=== PATIENT | female | born 1995 | race African-American/Black ===

== ENCOUNTER 2016-03-27 16:33 | Emergency (ER) | payer OTHER ==
[~2016-03-27] VITALS: Ht 167.6 cm; Wt 77.1 kg
[~2016-03-27 16:33] MED LIST: AMOX500C PO; CITA40TA12 PO; PNV1TABL69 PO; TRAZ50TA15 PO
--- NOTE | 2016-03-27 17:00 | PHYS DOC ---
Past Medical History Past Medical History: No Pertinent History, Depression Past Surgical History: No Surgical History Additional Information: nonsmoker Alcohol Use: None Drug Use: None Adult General Chief Complaint Chief Complaint: ABDOMINAL PAIN HPI HPI Patient is a 20 year old female who presents with pelvic pain for 2 weeks. She has had white vaginal discharge and irritation as well as urinary frequency and urgency. She has nausea without vomiting. She denies dysuria, fever, or diarrhea. She reports that her last menstrual cycle was irregular. She began to have spotting on 03/07/16 for a few days and then had her usual cycle on . She took a home test a week ago and it was negative. She had similar symptoms the last time she was . She had pre-term labor at 5 months and the baby did not live. Her PCP is Dr. Pascual Rodriguez. Review of Systems Review of Systems Constitutional: Denies fever or chills. [] GI: Denies abdominal pain, vomiting, bloody stools or diarrhea. Reports nausea and pelvic pain. : Denies dysuria, hematuria. Reports urinary frequency and urgency, vaginal discharge, no pelvic pain. Musculoskeletal: Denies joint pain. Reports low-back pain. Integument: Denies rash or skin lesions. [] Neurologic: Denies headache, focal weakness or sensory changes. [] All systems reviewed and negative unless otherwise stated in the HPI. Allergies Allergies Allergies Coded Allergies Type Severity Reaction Last Updated Verified No Known Drug Allergies 07/31/13 No Physical Exam Physical Exam Constitutional: Well developed, well nourished, no acute distress, non-toxic appearance. [] HENT: Normocephalic, atraumatic, oropharynx moist. [] Eyes: PERRLA, EOMI, conjunctiva normal, no discharge. [] Neck: Normal range of motion, no tenderness, supple, no stridor. [] Cardiovascular: Heart rate regular rhythm, no murmur. [] Lungs & Thorax: Bilateral breath sounds clear to auscultation without wheezes, rales, or rhonchi. [] Abdomen: Bowel sounds normal, soft, diffuse pelvic tenderness, no masses, no pulsatile masses. [] Female : Skin: Warm, dry, no erythema, no rash. [] Back: No midline tenderness, no CVA tenderness. [] Extremities: No tenderness, ROM intact, no edema. Distal pulses equal bilaterally. [] Neurologic: Alert and oriented X 3, normal motor function, normal sensory function, no focal deficits noted. [] Psychologic: Affect normal, judgement normal, mood normal. [] Current Patient Data Vital Signs Vital Signs Date Time Temp Pulse Resp B/P Pulse Ox O2 Delivery O2 Flow Rate FiO2 03/27/16 17:02 98.5 79 18 138/79 100 Room Air 98.5 Lab Values Laboratory Tests Test 03/27/16 16:40 Urine Collection Type Unknown Urine Color Yellow Urine Clarity Clear Urine pH 8.0 Urine Specific [place] 1.015 Urine Protein Negativemg/dL (NEG-TRACE) Urine Glucose (UA) Negativemg/dL (NEG) Urine Ketones (Stick) Negativemg/dL (NEG) Urine Blood Negative (NEG) Urine Nitrite Negative (NEG) Urine Bilirubin Negative (NEG) Urine Urobilinogen Dipstick 1.0mg/dL (0.2 mg/dL) Urine Leukocyte Esterase Trace (NEG) Urine RBC 0/HPF (0-2) Urine WBC 1-4/HPF (0-4) Urine Squamous Epithelial Cells Many/LPF Urine Bacteria Moderate/HPF (0-FEW) Urine Test Negative (NEG) Microbiology 03/27/16 Wet Prep - Final, Complete WET PREP Final YEAST NONE SEEN TRICHOMONAS NONE SEEN CLUE CELLS NONE SEEN ALTERED PASCALE ALTERED PASCALE PRESENT SUGGESTIVE OF BACTERIAL VAGINOSIS WBCS FEW EKG EKG [] Radiology/Procedures Radiology/Procedures [] Course & Med Decision Making Course & Med Decision Making Pertinent Labs and Imaging studies reviewed. (See chart for details) The patient is an 19-year old female who presents with pelvic pain for 2 weeks. On exam, she has diffuse pelvic tenderness with vaginal discharge. Urine shows UTI and wet prep shows BV. She requests STI treatment prophylactically and is given Rocephin and Azithromycin. She is discharged home with prescriptions for Flagyl and Cipro. She is instructed to abstain from intercourse for one week. Return precautions were discussed. She verbalizes understanding and agrees with plan. Dragon Disclaimer Dragon Disclaimer This electronic medical record was generated, in whole or in part, using a voice recognition dictation system. Departure Departure Impression: Primary Impression: UTI (urinary tract infection) Additional Impressions: BV (bacterial vaginosis) Pelvic pain Disposition: 01 HOME, SELF-CARE Condition: STABLE Referrals: PASCUAL RODRIGUEZ MD (PCP) Patient Instructions: Bacterial Vaginosis, [id number], Pelvic Pain, Female, [id number], Urinary Tract Infection, [id number] Additional Instructions: You were seen today for pelvic pain. Your urine shows an infection. You also have a vaginal bacterial infection, called bacterial vaginosis. This is not sexually transmitted. Please complete all of the prescribed antibiotics, even if you are feeling better. You were treated for gonorrhea and chlamydia today. We will not have the results of this test for 2-3 days. You will receive a phone call if your test is positive. Please do not have sex for 1 week to be sure that the treatment is complete. Please follow up with your primary care doctor if your symptoms continue. Return to emergency department if you have any new or concerning symptoms. Scripts Naproxen 500 Mg Tablet.dr500 Mg PO BID #20 Prov:NADINE MENDEZ 03/27/16 Ciprofloxacin Hcl (Cipro)500 Mg Tablet1 Tab PO BID 3 Days Prov:NADINE MENDEZ 03/27/16 Metronidazole (Flagyl)500 Mg Tablet1 Tab PO BID #14 TAB Prov:NADINE MENDEZ 03/27/16 Problem Qualifiers Primary Impression: UTI (urinary tract infection) Urinary tract infection type: acute cystitis Hematuria presence: with hematuria Qualified Code: N30.01 - Acute cystitis with hematuria NADINE MENDEZ Mar 27, 2016 17:00
[2016-03-27 17:01] LABS: NEG OBC UR NEG; POS OBC UR POS
[2016-03-27 17:02] VITALS: BP 138/79
[2016-03-27 17:03] LABS: BILIRUBIN,URINE NEGATIVE (NEG); GLUCOSE,URINE NEGATIVE (NEG); NITRITE,URINE NEGATIVE (NEG); PROTEIN,URINE NEGATIVE (NEG-TRACE)
[2016-03-27 17:11] LABS: BACTERIA,URINE MODERATE /HPF (0-FEW); RBC,URINE 0 /HPF (0-2)
[2016-03-27 17:12] LABS: SQUAMOUS EPITHELIAL CELL,UR MANY /LPF
[2016-03-27] MEDS ORDERED: CIPR500T94 PO (18:07)
[2016-03-27] MEDS ORDERED: NAPR500T8 PO (18:07)
[2016-03-27] MEDS ORDERED: METR500T PO (18:07)
[2016-03-27] MEDS ORDERED: CEFTRIAXONE IM 250 MG VIAL. IM ONE (18:15)
[2016-03-27] MEDS ORDERED: AZITHROMYCIN 250 MG TABLET PO ONE (18:15)
== END 2016-03-27 18:24 | disposition home or self-care (01) ==
LOC: ER 16:33
DX: N39.0 Urinary tract infection, site not specified (principal)
CPT/HCPCS: 81001; 81025; 87086; 87491; 87591; 96372; 99284; J0696; Q0111; Q0144

== ENCOUNTER 2016-06-08 14:07 | Emergency (ER) | payer OTHER ==
[~2016-06-08] VITALS: Ht 167.6 cm; Wt 77.1 kg
[~2016-06-08 14:07] MED LIST changes: +CIPR500T94 PO; +METR500T PO; +NAPR500T8 PO
[2016-06-08 14:43] VITALS: BP 128/73
[2016-06-08 15:27] LABS: BILIRUBIN,URINE NEGATIVE (NEG); GLUCOSE,URINE NEGATIVE (NEG); NITRITE,URINE NEGATIVE (NEG); PROTEIN,URINE NEGATIVE (NEG-TRACE)
[2016-06-08 15:33] LABS: BACTERIA,URINE MANY /HPF (0-FEW); RBC,URINE 0 /HPF (0-2); SQUAMOUS EPITHELIAL CELL,UR MANY /LPF
--- NOTE | 2016-06-08 15:43 | PHYS DOC ---
Past Medical History Past Medical History: No Pertinent History Past Surgical History: No Surgical History Additional Information: nonsmoker Alcohol Use: None Drug Use: None Adult General Chief Complaint Chief Complaint: ABDOMINAL PAIN HPI HPI Patient is a 20 year old female who presents with pelvic cramping for 2 weeks. She reports urinary frequency and urgency. She has also had occasional nausea with vomiting. Her LMP was 05/06/06. She thinks she may be . She denies vaginal bleeding or discharge. She has not had dysuria, hematuria, fever, or diarrhea. She has had 1 previous twin . She delivered prematurely at 20 weeks and neither baby survived after . Her PCP is Dr. Pascual Rodriguez. Her OB doctor is Dr. Walt Portillo. Review of Systems Review of Systems Constitutional: Denies fever or chills. [] Eyes: Denies change in visual acuity, redness, or eye pain. [] HENT: Denies ear pain, nasal congestion or sore throat. [] Respiratory: Denies cough or shortness of breath. [] Cardiovascular: Denies chest pain, palpitations or edema. [] GI: Denies bloody stools or diarrhea. Reports nausea and vomiting. : Denies dysuria, hematuria, vaginal bleeding or discharge. Reports pelvic cramping, urinary frequency and urgency. Musculoskeletal: Denies back pain or joint pain. [] Integument: Denies rash or skin lesions. [] Neurologic: Denies headache, focal weakness or sensory changes. [] Endocrine: Denies polyuria or polydipsia. [] Psych: Denies anxiety or depression. [] All systems reviewed and negative unless otherwise stated in the HPI. Allergies Allergies Allergies Coded Allergies Type Severity Reaction Last Updated Verified No Known Drug Allergies 07/31/13 No Physical Exam Physical Exam Constitutional: Well developed, well nourished, no acute distress, non-toxic appearance. [] HENT: Normocephalic, atraumatic, oropharynx moist. [] Eyes: PERRLA, EOMI, conjunctiva normal, no discharge. [] Neck: Normal range of motion, no tenderness, supple, no stridor. [] Cardiovascular: Heart rate regular rhythm, no murmur. [] Lungs & Thorax: Bilateral breath sounds clear to auscultation without wheezes, rales, or rhonchi. [] Abdomen: Bowel sounds normal, soft, suprapubic tenderness, no masses, no pulsatile masses. [] Female : May, RN present for exam. Normal external genitalia. There is mild discharge in the vagina without bleeding. There is no cervicitis or CMT. There is mild left adnexal tenderness without mass. Skin: Warm, dry, no erythema, no rash. [] Back: No midline tenderness, no CVA tenderness. [] Extremities: No tenderness, ROM intact, no edema. Distal pulses equal bilaterally. [] Neurologic: Alert and oriented X 3, normal motor function, normal sensory function, no focal deficits noted. [] Psychologic: Affect normal, judgement normal, mood normal. [] Current Patient Data Vital Signs Vital Signs Date Time Temp Pulse Resp B/P Pulse Ox O2 Delivery O2 Flow Rate FiO2 06/08/16 14:43 98.8 98 16 128/73 100 Room Air 98.8 Lab Values Laboratory Tests Test 06/08/16 14:06 06/08/16 15:00 POC Urine HCG, Qualitative Hcg positive (Negative) Urine Collection Type Void Urine Color Yellow Urine Clarity Clear Urine pH 8.0 Urine Specific [place] 1.015 Urine Protein Negativemg/dL (NEG-TRACE) Urine Glucose (UA) Negativemg/dL (NEG) Urine Ketones (Stick) Negativemg/dL (NEG) Urine Blood Negative (NEG) Urine Nitrite Negative (NEG) Urine Bilirubin Negative (NEG) Urine Urobilinogen Dipstick 1.0mg/dL (0.2 mg/dL) Urine Leukocyte Esterase Small (NEG) Urine RBC 0/HPF (0-2) Urine WBC 1-4/HPF (0-4) Urine Squamous Epithelial Cells Many/LPF Urine Bacteria Many/HPF (0-FEW) Urine Mucus Slight/LPF Microbiology 06/08/16 Wet Prep - Final, Complete WET PREP Final YEAST NONE SEEN TRICHOMONAS NONE SEEN CLUE CELLS CLUE CELLS PRESENT EKG EKG [] Radiology/Procedures Radiology/Procedures REASON: pelvic cramping PROCEDURE: OB <14 WKS W/TV Pelvic ultrasound, 06/08/2016: History: Pelvic pain, positive test Transabdominal and transvaginal scans were obtained. The transabdominal scans are of limited utility due to lack of bladder distention. The transvaginal scans demonstrate thickening of the central uterine echo complex which measures approximately 16 mm in AP dimension. A tiny 3 mm cystic structure is seen within this process on the right. This could be a very tiny gestational sac, however, that cannot be stated with certainty. The right ovary is within normal limits in size. It contains a 1.7 cm slightly hyperechoic nodule. There is increased vascularity within and along the rim of this nodule. This may be a collapsing hemorrhagic cyst. This does not have the typical appearance of an ectopic gestation. The left ovary is within normal limits in size. It contains a 1.2 cm simple cyst. There is a small to moderate amount of free fluid in the pelvis. IMPRESSION: 1. Thickening of the central uterine echo complex with a questionable tiny intrauterine gestational sac as described above. 2. Small hyperechoic, mildly vascular nodule in the right ovary, not typical of an ectopic . 3. Small to moderate amount of free fluid in the pelvis. 4. Correlation with serial hCG titers and sonographic follow-up is suggested. Course & Med Decision Making Course & Med Decision Making Pertinent Labs and Imaging studies reviewed. (See chart for details) [] Dragon Disclaimer Dragon Disclaimer This electronic medical record was generated, in whole or in part, using a voice recognition dictation system. Departure Departure Impression: Primary Impression: Additional Impressions: BV (bacterial vaginosis) UTI (urinary tract infection) during Disposition: 01 HOME, SELF-CARE Condition: STABLE Referrals: PASCUAL RODRIGUEZ MD (PCP) Patient Instructions: , - Urinary Tract Infection Additional Instructions: Your test was positive today. It is very early to see anything definitive on ultrasound. Your urine was positive for infection. You also have a vaginal infection called bacterial vaginosis. This is not an STD. Please complete all of the prescribed antibiotics, even if you are feeling better. Please take vitamins daily. Please follow up with your OB doctor for routine care. Return to the emergency department if you have severe abdominal pain, vaginal bleeding, or other new or concerning symptoms. Scripts Vits W-Ca,Fe,Fa(<1MG) ( Vitamins)1 Each Tablet1 Each PO DAILY # 30 Prov:NADINE MENDEZ 06/08/16 Nitrofurantoin Monohyd/M-Cryst (Macrobid 100 Mg Capsule)100 Mg Capsule1 Cap PO BID #14 CAP Prov:NADINE MENDEZ 06/08/16 Metronidazole (Flagyl)500 Mg Tablet1 Tab PO BID #14 TAB Prov:NADINE MENDEZ 06/08/16 Problem Qualifiers Primary Impression: Weeks of gestation: less than 8 weeks Qualified Code: Z3A.01 - Less than 8 weeks gestation of Additional Impressions: UTI (urinary tract infection) during Trimester: first trimester Qualified Code: O23.41 - Unspecified infection of urinary tract in , first trimester NADINE MENDEZ Jun 08, 2016 15:43
--- NOTE | 2016-06-08 16:24 | RAD ---
Pelvic ultrasound, 06/08/2016: History: Pelvic pain, positive test Transabdominal and transvaginal scans were obtained. The transabdominal scans are of limited utility due to lack of bladder distention. The transvaginal scans demonstrate thickening of the central uterine echo complex which measures approximately 16 mm in AP dimension. A tiny 3 mm cystic structure is seen within this process on the right. This could be a very tiny gestational sac, however, that cannot be stated with certainty. The right ovary is within normal limits in size. It contains a 1.7 cm slightly hyperechoic nodule. There is increased vascularity within and along the rim of this nodule. This may be a collapsing hemorrhagic cyst. This does not have the typical appearance of an ectopic gestation. The left ovary is within normal limits in size. It contains a 1.2 cm simple cyst. There is a small to moderate amount of free fluid in the pelvis. IMPRESSION: 1. Thickening of the central uterine echo complex with a questionable tiny intrauterine gestational sac as described above. 2. Small hyperechoic, mildly vascular nodule in the right ovary, not typical of an ectopic . 3. Small to moderate amount of free fluid in the pelvis. 4. Correlation with serial hCG titers and sonographic follow-up is suggested.
[2016-06-08] MEDS ORDERED: PREN1TAB58 PO (16:32)
[2016-06-08] MEDS ORDERED: NITR100C62 PO (16:32)
[2016-06-08] MEDS ORDERED: METR500T PO (16:32)
--- NOTE | 2016-06-12 13:33 | VNOTE ---
CALL BACK NOTE CALL BACK Microbiology 06/08/16 Wet Prep - Final, Complete 06/08/16 Urine Culture - Final, Complete 06/08/16 Urine Culture Result 1 (LORY) - Final, Complete 06/08/16 Antimicrobic Susceptibility - Final, Complete Patient was discharged on nitrofurantoin, urine culture shows it has intermediate coverage, I called patient spoke to her, she states she has not been taking her antibiotics. RX forKeflex called at her local [facility] of the [address] [place] [address]. LETICIA PABLO [employer] Jun 12, 2016 13:33
== END 2016-06-08 17:00 | disposition home or self-care (01) ==
LOC: ER 14:07
DX: O23.41 Unspecified infection of urinary tract in pregnancy, first trimester (principal); O23.591 Infection of other part of genital tract in pregnancy, first trimester; N76.0 Acute vaginitis; Z3A.01 Less than 8 weeks gestation of pregnancy
CPT/HCPCS: 36415; 76801; 76817; 81001; 81025; 84702; 87086; 87186; 87491; 87591; 99285; Q0111; 99284-25

== ENCOUNTER 2016-08-17 23:11 | Emergency (ER) | payer SELFPAY ==
[~2016-08-17] VITALS: Ht 165.1 cm; Wt 83.5 kg
[~2016-08-17 23:11] MED LIST changes: +NITR100C62 PO; +PREN1TAB58 PO
--- NOTE | 2016-08-18 00:13 | PHYS DOC ---
Past Medical History Past Medical History: No Pertinent History Past Surgical History: No Surgical History Alcohol Use: None Drug Use: None Adult General Chief Complaint Chief Complaint: ABDOMINAL PAIN IN HPI HPI Patient is a 21 year old female approximately 16 weeks with twins who presents with lower abdominal cramping that has been gradually worsening in the past day. She denies fever or chills, nausea or vomiting, diarrhea, constipation , vaginal bleeding or discharge, dysuria, hematuria, back pain. She is concerned because she had a prior miscarriage with a twin gestation. Review of Systems Review of Systems Constitutional: Denies fever or chills [] Eyes: Denies change in visual acuity, redness, or eye pain [] HENT: Denies nasal congestion or sore throat [] Respiratory: Denies cough or shortness of breath [] Cardiovascular: No additional information not addressed in HPI [] GI: Denies nausea, vomiting, bloody stools or diarrhea [] : Denies dysuria or hematuria [] Musculoskeletal: Denies back pain or joint pain [] Integument: Denies rash or skin lesions [] Neurologic: Denies headache, focal weakness or sensory changes [] Endocrine: Denies polyuria or polydipsia [] Allergies Allergies Allergies Coded Allergies Type Severity Reaction Last Updated Verified No Known Drug Allergies 07/31/13 No Physical Exam Physical Exam Constitutional: Well developed, well nourished, no acute distress, non-toxic appearance. [] HENT: Normocephalic, atraumatic, bilateral external ears normal, oropharynx moist, nose normal. [] Eyes: PERRLA, EOMI. [] Neck: Normal range of motion, supple. [] Cardiovascular:Heart rate regular rhythm [] Lungs & Thorax: Bilateral breath sounds clear to auscultation [] Abdomen: Bowel sounds normal, soft, no tenderness. Gravid below umbilicus [] Skin: Warm, dry, no erythema, no rash. [] Back: No tenderness, no CVA tenderness. [] Extremities: No tenderness, OM intact, no edema. [] Neurologic: Alert and oriented X 3, normal motor function, normal sensory function, no focal deficits noted. [] Psychologic: Affect normal, judgement normal, mood normal. [] Current Patient Data Vital Signs Vital Signs Date Time Temp Pulse Resp B/P (MAP) Pulse Ox O2 Delivery O2 Flow Rate FiO2 08/18/16 00:37 89 106/60 (75) 100 Room Air 08/17/16 23:40 98.5 18 98.5 Lab Values Laboratory Tests Test 08/17/16 22:42 POC Urine HCG, Qualitative Hcg positive (Negative) Course & Med Decision Making Course & Med Decision Making Pertinent Labs and Imaging studies reviewed. (See chart for details) Bedside ultrasound as performed and interpreted by me showing twin gestation, heart rate 150 and heart rate 153, positive movement. Patient encouraged studies findings and wants to go home to follow-up with her OB doctor. Encouraged her to take Tylenol as needed for pain and drink liquids. Return precautions given. She understands and agrees with plan. Dragon Disclaimer Dragon Disclaimer This electronic medical record was generated, in whole or in part, using a voice recognition dictation system. Departure Departure Impression: Primary Impression: Abdominal pain during Disposition: 01 HOME, SELF-CARE Condition: STABLE Referrals: PASCUAL RODRIGUEZ MD (PCP) Patient Instructions: Abdominal Pain During , [id number] Additional Instructions: Take Tylenol as needed for pain. Follow-up with your OB. Return for any concerns. Problem Qualifiers Primary Impression: Abdominal pain during Trimester: second trimester Qualified Codes: O26.892 - Other specified related conditions, second trimester; R10.9 - Unspecified abdominal pain Lamar AVILEZ MD Aug 18, 2016 00:13
[2016-08-18 00:37] VITALS: BP 106/60
== END 2016-08-18 00:37 | disposition home or self-care (01) ==
LOC: ER 23:11
DX: O26.892 Other specified pregnancy related conditions, second trimester (principal); R10.30 Lower abdominal pain, unspecified; Z3A.16 16 weeks gestation of pregnancy
CPT/HCPCS: 81025; 99283